=== PATIENT | male | born 1945 | race Caucasian/White ===

== ENCOUNTER → 2022-05-08 10:47 | Outpatient (BNVA) | payer MEDICARE, SELFPAY | PROVIDERS: PCP Internal Medicine; Visit Provider Nurse Practitioner Family | DX: G20 Parkinson's disease (principal) | CPT/HCPCS: 99202 ==

== ENCOUNTER → 2022-11-06 10:39 | Outpatient (BNVA) | payer MEDICARE, SELFPAY | PROVIDERS: PCP Internal Medicine; Visit Provider Nurse Practitioner Family | DX: G20 Parkinson's disease (principal) | CPT/HCPCS: 99212 ==

== ENCOUNTER 2023-06-19 13:04 | Outpatient (AMB) | payer MEDICARE, SELFPAY ==
--- NOTE | 2023-06-19 13:07 | MHC.OFFVIS ---
Intake Vital Signs 06/19/23 13:09 Height 5 ft 4 in Weight 125 lb 2 oz BMI 21.5 BP 120/64 Blood Pressure Location Lt brachial Position Standing Intake Visit Reasons: 6m follow up tremors/Confirmed Intake Note: Pt presents today for fup tremors , some improvements Allergies Penicillins Allergy (Verified 06/19/23 13:13) Rash bactrim Allergy (Uncoded 11/06/22 10:46) Rash HPI HPI Comments History of Present Illness Details 77 male patient with autonomic dysfunction and orthostatic hypotention presents with his for follow up of Parkinson's. Pt reports that head and hands tremor is about the same. Tremor is not consistent, happens usually when he rest. He feels stiffness of his fingers and decreased fine motor functions. However, he can do all ADLs independently. 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 He goes to gym twice a week. He uses fiber with his coffee to manage constipation. Denies difficulty chewing or swallowing. Denies gait changes or falls. Pt has hx of autonomic dysfunction and is on midodrine 2.5 mg BID. He can have occasional light headedness and tries to drink 4-6 glasses of water daily. Pt states that patient's memory is stable but forgetful. He can manage finances. [facility] Surgical History History of prostate surgery Social History (Updated 06/19/23 @ 13:14 by Luciana Gallego) Alcohol intake: never Patient Tobacco Use Status: Never used Tobacco Review of Systems Const All systems reviewed & are unremarkable except as noted in HPI and below Physical Exam Vital Signs: Last Vital Signs BP 120/64 06/19/23 13:09 BMI result Body Mass Index 21.5 Const Orientation/consciousness: patient oriented x3 Neuro Other: Mild head tremor and tongue tremor. Intermittent minimal resting hands tremor. Decreased facial expression and eye blinking. Hypophonia. Mild cogwheel rigidity on BUE. Decreased FFM. Decrease arm swing R>L. Mildly stooped, good steps. General: patient oriented x3 Cranial nerves: Yes Normal facial strength present, Yes Midline tongue present, Yes Ability to bilaterally rotate head present and Yes Ability to bilaterally elevate shoulders present Cognition (Neuro): normal cognition Motor exam (neuro): 5/5 motor strength present throughout and Pronator motor function not present Deep tendon reflexes (DTR's): Rt Biceps (C5, C6): 2+, Left biceps reflex intensity grade: 2+, Right brachioradialis reflex intensity grade: 2+, Left brachioradialis reflex intensity grade: 2+, Right patellar reflex intensity grade: 2+ and Left patellar reflex intensity grade: 2+ Coordination: [id number] test normal Assessment & Plan Assessment & Plan (1) Parkinson disease: Code(s): G20 - Parkinson's disease Plan Will monitor the progression and will consider sinemet at next visit due to autonomic dysfunction and orthostatic hypotention. Encouraged patient to continue to do daily exercise. Advised patient to do voice and speech exercise including reading books loudly and singing. Encourage patient well balanced diet and enough PO fluid to prevent orthostatic hypotension and constipation. Coding Level of Care Code Est Pt Level 3 (69306) Diagnoses Parkinson disease G20
[2023-06-19 13:09] VITALS: BP 120/64; BMI 21.5
== END 2023-06-19 13:33 | disposition home or self-care (01) ==
PROVIDERS: Visit Provider Nurse Practitioner Family
DX: G20.A1 Parkinson's disease without dyskinesia, without mention of fluctuations (principal); I95.1 Orthostatic hypotension
CPT/HCPCS: 99213

== ENCOUNTER → 2023-06-19 13:04 | Outpatient (BNVA) | payer MEDICARE, SELFPAY | PROVIDERS: Visit Provider Nurse Practitioner Family | DX: G20.A1 Parkinson's disease without dyskinesia, without mention of fluctuations (principal) | CPT/HCPCS: 99212 ==

== ENCOUNTER 2024-04-21 09:16 | Outpatient (AMB) | payer MEDICARE, SELFPAY ==
--- NOTE | 2024-04-21 09:20 | A.OFFVIS_ITS ---
Vital Signs 04/21/24 09:21 Height 5 ft 4 in Weight 124 lb 2 oz BMI 21.3 BP 170/90 H Blood Pressure Location Rt brachial Position Sitting Respiration 16 Pulse 78 Pulse Source Pulse Oximeter Pulse Oximetry (%) 98 Oxygen Delivery Method Room Air Intake Visit Reasons: 6 mnts f/u for Tremors Intake Note: Pt presents to the office for a 10 month follow up for Parkinson's. 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: No Allergies Penicillins Allergy (Verified 04/21/24 09:21) Rash bactrim Allergy (Uncoded 04/21/24 09:21) Rash Medication List - Last Reconciled 04/21/24 by Veronica Foy MD amlodipine 2.5 mg PO DAILY aspirin 81 mg PO DAILY atorvastatin 20 mg PO BEDTIME levothyroxine 50 mcg PO DAILY loratadine (Allergy Relief (loratadine)) 10 mg PO DAILY PRN midodrine 2.5 mg PO BID [id number]-pr1-rym-nxt-djur-lut-katlin 250 mg (90 mg-160 mg) (Ocuvite Adult 50 Plus) 1 cap PO DAILY nitroglycerin 0.4 mg sublingual Q5M PRN polyethylene glycol 3350 (Miralax) 17 grams PO DAILY HPI Comments Details: 78 male patient with autonomic dysfunction and orthostatic hypotension presents with his for follow up of Parkinson's after almost a year.He denies nay change since his last visit.No falls. According to his he is slower, has trouble dressing and he has tremors in his left hand now.He goes to exercise class 2times a week and walks the rest of the week. 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 Denies difficulty chewing or swallowing. Denies gait changes or falls. Pt has hx of autonomic dysfunction and is on midodrine 2.5 mg BID. He can have occasional light headedness and tries to drink 4-6 glasses of water daily. Pt states that patient's memory is stable but forgetful. He can manage finances. [facility] Medical History (Updated 04/21/24 @ 09:57 by Veronica Foy MD) Parkinson's disease with neurogenic orthostatic hypotension Surgical History History of prostate surgery Social History Alcohol intake: never Patient Tobacco Use Status: Never used Tobacco Physical Exam Vital Signs: Last Vital Signs Pulse 78 04/21/24 09:21 Resp 16 04/21/24 09:21 BP 170/90 H 04/21/24 09:21 Pulse Ox 98 04/21/24 09:21 Oxygen Delivery Method Room Air 04/21/24 09:21 BMI result Body Mass Index 21.3 Const Orientation/consciousness: patient oriented x3 Neuro Other: Intermittent minimal resting hands tremor. Decreased facial expression and eye blinking. Hypophonia. Mild cogwheel rigidity on BUE. Decreased FFM. Decrease arm swing R>L. Mildly stooped, good steps. General: patient oriented x3 Cranial nerves: Yes Normal facial strength present, Yes Midline tongue present, Yes Ability to bilaterally rotate head present and Yes Ability to bilaterally elevate shoulders present Cognition (Neuro): normal cognition Motor exam (neuro): 5/5 motor strength present throughout and Pronator motor function not present Deep tendon reflexes (DTR's): Rt Biceps (C5, C6): 2+, Left biceps reflex intensity grade: 2+, Right brachioradialis reflex intensity grade: 2+, Left brachioradialis reflex intensity grade: 2+, Right patellar reflex intensity grade: 2+ and Left patellar reflex intensity grade: 2+ Coordination: [id number] test normal Assessment & Plan Assessment & Plan (1) Parkinson's disease with neurogenic orthostatic hypotension: Code(s): G90.3 - Multi-system degeneration of the autonomic nervous system Category: Medical Plan Encouraged patient to continue to do daily exercise. Advised patient to do voice and speech exercise including reading books loudly and singing. Encourage patient well balanced diet and enough PO fluid to prevent orthostatic hypotension and constipation. Suggested miralax and smooth move tea for constipation . will hold off on dopamine meds for now PT for gait training Orders: Orders PT Evaluation and Treatment Today G90.3 - Multi-system degeneration of the autonomic nervous system Medications: New polyethylene glycol 3350 (Miralax) 17 grams PO DAILY 510 grams 6RF Coding Level of Care Code Est Pt Level 4 (44933) Complex EM visit Add On G2211 Diagnoses Parkinson's disease with neurogenic orthostatic hypotension G90.3
[2024-04-21 09:21] VITALS: BP 170/90; PULSE 78; RESP 16; O2SAT 98; BMI 21.3
== END 2024-04-21 10:04 | disposition home or self-care (01) ==
PROVIDERS: PCP Internal Medicine; Visit Provider Psychiatry & Neurology Neurology
DX: G90.3 Multi-system degeneration of the autonomic nervous system (principal)
CPT/HCPCS: 99214; G2211

== ENCOUNTER → 2024-04-21 09:16 | Outpatient (BNVA) | payer MEDICARE, SELFPAY | PROVIDERS: PCP Internal Medicine; Visit Provider Psychiatry & Neurology Neurology | DX: G90.3 Multi-system degeneration of the autonomic nervous system (principal) | CPT/HCPCS: 99212 ==

== ENCOUNTER 2024-12-01 09:41 | Outpatient (AMB) | payer MEDICARE, SELFPAY ==
--- NOTE | 2024-12-01 09:49 | MHC.OFFVIS ---
Vital Signs 12/01/24 09:52 Height 5 ft 4 in Weight 119 lb BMI 20.4 BP 144/80 H Blood Pressure Location Rt brachial Position Sitting Intake Visit Reasons: 6 mnts f/u for Tremors-LVM Intake Note: Patient presents for follow up PT referral. ATI note scanned 10/08/24. Allergies Penicillins Allergy (Verified 12/01/24 09:52) Rash bactrim Allergy (Uncoded 12/01/24 09:52) Rash Medication List - Last Reconciled 12/01/24 by Veronica Foy MD amlodipine 2.5 mg PO DAILY aspirin 81 mg PO DAILY atorvastatin 20 mg PO BEDTIME levothyroxine 50 mcg PO DAILY loratadine (Allergy Relief (loratadine)) 10 mg PO DAILY PRN midodrine 2.5 mg PO BID gx-nk-or8-qja-ees-ctcf-lut-katlin 250 mg (90 mg-160 mg) (Ocuvite Adult 50 Plus) 1 cap PO DAILY nitroglycerin 0.4 mg sublingual Q5M PRN polyethylene glycol 3350 (Miralax) 17 grams PO DAILY HPI Comments Details: 78 male patient with autonomic dysfunction and orthostatic hypotension presents with his for follow up of Parkinson's after 6 mths . No falls. denies dizziness. According to his he is slower, drooling more,has trouble dressing and he has tremors in his left hand now.He goes to exercise class 2times a week and walks the rest of the week. 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 Denies difficulty chewing or swallowing. Denies gait changes or falls. Pt has hx of autonomic dysfunction and is on midodrine 2.5 mg BID. He can have occasional light headedness and tries to drink 4-6 glasses of water daily. Pt states that patient's memory is stable but forgetful. He can manage finances. [facility] Medical History Parkinson's disease with neurogenic orthostatic hypotension Surgical History History of prostate surgery Social History Alcohol intake: never Patient Tobacco Use Status: Never used Tobacco Physical Exam Vital Signs: Last Vital Signs BP 144/80 H 12/01/24 09:52 BMI result Body Mass Index 20.4 Const Orientation/consciousness: patient oriented x3 Neuro Other: Intermittent minimal resting hands tremor. Decreased facial expression and eye blinking. Hypophonia. Mild cogwheel rigidity on BUE. Decreased FFM. Decrease arm swing R>L. Mildly stooped, good steps. General: patient oriented x3 Cranial nerves: Yes Normal facial strength present, Yes Midline tongue present, Yes Ability to bilaterally rotate head present and Yes Ability to bilaterally elevate shoulders present Cognition (Neuro): normal cognition Motor exam (neuro): 5/5 motor strength present throughout and Pronator motor function not present Coordination: [id number] test normal Assessment & Plan Assessment & Plan (1) Parkinson's disease with neurogenic orthostatic hypotension: Code(s): G90.3 - Multi-system degeneration of the autonomic nervous system Category: Medical Plan I will trial him on carbidopa/levodopa 25/100 1/2 tab tid - discussed side effects Encouraged patient to continue to do daily exercise. Advised patient to do voice and speech exercise including reading books loudly and singing. Encourage patient well balanced diet and enough PO fluid to prevent orthostatic hypotension and constipation. Suggested miralax and smooth move tea for constipation . Medications: New carbidopa-levodopa 25-100 mg 0.5 tabs PO TID 90 tabs 1RF Coding Level of Care Code Est Pt Level 4 (67786) Complex EM visit Add On G2211 Diagnoses Parkinson's disease with neurogenic orthostatic hypotension G90.3
[2024-12-01 09:52] VITALS: BP 144/80; BMI 20.4
--- OUTSIDE RECORDS SUMMARY | 2024-12-01 10:53 | XMS_ITS | Clinical Summary ---
Author Organization [facility] [address] [facility] Address [address] [place] [address] Phone Care Team Providers Care Improvement Leader Name Role Phone Nader Davenport MD Primary Care Provider Allergies Active Allergy Reactions Criticality Noted Date Comments Diphenhydramine Hcl 07/15/2005 Penicillins 07/15/2005 Sulfamethoxazole-Trimethoprim 2004 Medications aspirin (ASPIR-81 ORAL) Take by mouth. Active mv-mn/om3/dha/e pa/fish/lut/katlin (OCUVITE ADULT 50 PLUS ORAL) Take by mouth. A ctive amLODIPine (NORVASC) 2.5 mg tablet TAKE 1 TABLET DAILY 4 Active atorvastatin (LIPITOR) 20 mg tablet TAKE 1 TABLET AT BEDTIME 4 Active nitroglycerin (NITROSTAT) 0.4 mg SL tablet Sl , can repeat q 5 min for total of 3tab within 10-15 min 1 Active midodrine (PROAMATINE) 2.5 mg tablet TAKE 1 TABLET EVERY MORNINGAND 1 TABLET AT 2PM (TWICE DAILY) 180 tablet 5 Active levothyroxine (SYNTHROID, LEVOTHROID) 50 mcg tablet Take 1 tablet (50 mcg total) by mouth 1 (one) time each day. 90 tablet 3 5 Active mirtazapine (REMERON) 7.5 mg tablet TAKE 1 TABLET AT BEDTIME 90 tablet 5 Active Active Problems Problem Noted Date Diagnosed Date Colon cancer screening declined 08/09/2024 Parkinson's disease ([facility] V24, [facility] V28) 0 01/30/2024 Nephrolithiasis 10/11/2021 Actinic keratosis 08/20/2011 Overview (06/29/2024): Actinic keratosis 08/22 face & scalp Diverticula of colon 03/13/2011 Overview (06/29/2024): Asymptomatic, found on colonoscopy in 12/19 Squamous cell carcinoma of skin 05/16/2008 Overview (06/29/2024): SCC 10/20 neck (in situ) 04/21 scalp (in situ) 05/17 scalp, frontal & posterior (in-situ) Coronary disease 10/17/2007 Overview (06/29/2024): Rt and circ Plast 1994 Dr allen repaeat Cath 1999 stable Lyme disease 09/18/2007 Overview (06/29/2024): treated Constipation 05/23/2006 Overview (06/29/2024): IMO update Neoplasm of uncertain behavior of skin Overview (06/29/2024): Dysplastic nevus right ear (moderate atypia) Coronary atherosclerosis of gamb[place] coronary vess el 12/01/2005 Malignant neoplasm of skin 12/01/2005 Overview (06/29/2024): BCC 11/17 nose (nodular type) 08/13 left catholic 92' right shoulder IMO update Hypothyroidism 12/01/2005 Essential hypertension, benign 07/15/2005 Mixed hyperlipidemia 07/15/2005 Immunizations Name Administration Dates Next Due Influenza Quadravalent, MDCK , 0.5ml, preservative free (Flucelvax) 6mo and older 06/11/2018 Influenza trivalent, 0.5mL ( Fluad) 65yo and older 06/12/2024,05/31/2023,05/14/2021,05/18,05/05/2019,06/01/2017 Influenza trivalent, 0.5mL, preservative free (Fluarix; FluLaval; Fluzone) ages 6mo and older (Afluria) 3 years and older 07/14/2016,07/20/2015,07/03/2014,06/08,04/29/2012,05/15/2011,06/08/2010 ,05/16/2009,05/16/2008,06/14/2005 Influenza, Unspecified 05/27/2020 Moderna SARS-CoV-2 COVID-19, mRNA, LNP-S, preservative free 06/20/2021,11/01/2020,10/03/2020 Pneumococcal conjugate 13 va lent (Prevnar 13, PCV13) 2mo and older 03/08/2015 Pneumococcal polysaccharide 23 valent (Pneumovax 23) 2yo and older 10/31/2010,06/14/2005 Td Tetanus diptheria (Tdvax) 7yo and older 04/07/2013,05/30/2003 Zoster Live 11/07/2009 Zoster recombinant (Shingrix ) 19yo and older 07/30/2020,05/27/2020 Surgical History Surgery Date Site/Laterality Comments MOLE REMOVAL PROCEDURE: HISTORICAL MOLE (REMOVAL OF) OTHER SURGICAL HISTORY 04/23/2001 PROCEDURE: COLON CA SCRN NOT HI RSK IND; COMMENT: Negative screening exam, Dr. Zapata OTHER SURGICAL HISTORY PROCEDURE: CT LAPS SURG [id number] RPBIC RAD W/NRV SPARING ROBOT; COMMENT: For prostate cancerDr. Thompson in 2010 Medical History Medical History Date Comments Unspecified hypothyroidism DX:Un specified hypothyroidism Essential hypertension, benign D X:Essential hypertension, benign Mixed hyperlipidemia DX:Mixed hy perlipidemia Coronary atherosclerosis of unspecified type of vessel, gambell or graft 12/01/2005 DX:Coronary atherosclerosis of unspecified type of vessel, gambell or graft Unspecified hypothyroidism 12/01/2005 DX:Un specified hypothyroidism Hypertrophy of prostate with out urinary obstruction and other lower urinary tract symptoms (LUTS) 12/01/2005 DX:Hypertrophy of prosta te without urinary obstruction and other lower urinary tract symptoms (LUTS) Other malignant neoplasm of skin, site unspecified 12/01/2005 DX:Other malignant neoplasm of skin, site unspecified Nevus, non-neoplastic DX:Nevus, non-neoplastic Coronary disease 10/17/2007 DX:Coronary dis ease Diverticula of colon 03/13/2011 DX:Divertic hilario of colon Prostate cancer (CMS/HCC V24 , CMS/HCC V28) 07/15/2011 DX:Prostate cancer (HCC) Family History Medical History Relation Name Comments Other: stroke Father at 67 Other: Other Mother Other: myocardial infarction Mother at 83 Relation Name Status Comments Brother 1 Alive Prostate cancer Brother 2 Alive Father (Age 65) stroke Mother (Age 84) stroke Social History Tobacco Use Types Packs/Day Years Used Date Smoking Tobacco: Never Smokeless Tobacco: Never Alcohol Use Standard Drinks/Week Comments Yes 0 (1 standard drink = 0.6 oz pur e alcohol) Sex and Gender Information Value Date Recorded Sex Assigned at Not on file Legal Sex Male 11:44 PM EST Gender Identity Male 08/02/2024 1:05 PM EST Sexual Orientation Straight 08/02/2024 1: 05 PM EST Obstetrics History Last Filed Vital Signs Vital Sign Reading Time Taken Comments Blood Pressure 132/79 08/09/2024 9:48 AM EST Pulse 66 08/09/2024 9:45 AM EST Temperature 36.3 ??C (97.3 ??F) 08/09/2024 9:45 AM ES T Respiratory Rate 16 08/09/2024 9:45 AM EST Oxygen Saturation 99% 08/09/2024 9:45 AM EST Inhaled Oxygen Concentration - - Weight 55 kg (121 lb 3.2 oz) 08/09/2024 9:45 AM EST Height 162.6 cm (5' 4 ) 08/09/2024 9:45 AM EST Body Mass Index 20.8 08/09/2024 9:45 AM EST Plan of Treatment Upcoming Encounters Date Type Department Care Team (Late st Contact Info) Description 02/09/2025 9:45 AM EDT Office Visit Adult Medicine [facility] [address] [place] [address] Nader Davenport MD [address] [place] [address] Health Maintenance Due Date Last Done Comments RSV Immunization Adult Patients (1 - 1-dose 75+ series) 2020 Social Influencers of Health Screening 07/14/2022 DTaP,Tdap,and Td Vaccines (3 - Td or Tdap) 04/07/2023 04/07/2013, 05/30/2003 COVID-19 Vaccine (7 - Moderna risk season) 2024 06/12/2024, 05/31/2023, 05/06/2022, Additional history exists Depression Screening 01/29/2025 01/30/2024 Medicare Annual Wellness Visit 01/29/2025 01/30/2024 Falls Risk Assessment 08/09/2025 08/09/2024 Hypertension/CHF/CAD Annual BMP Blood Test 08/09/2025 08/09/2024, 08/18/2023 Cholesterol Screening (Lipid Panel) 08/09/2029 08/09/2024, 08/18/2023 Hepatitis C Screening Completed 07/21/2014 Pneumococcal Vaccine: 50+ Years Completed 03/08/2015, 10/31/2010, 06/14/2005 Zoster Vaccines Completed 07/30/2020, 05/11, 11/07/2009 Influenza Vaccine Completed 06/12/2024, , 05/20/2022, Additional history exists HIB Vaccines Aged Out No longer eligi ble based on patient's age to complete this topic HPV Vaccines Aged Out No longer eligi ble based on patient's age to complete this topic Hepatitis A Vaccines Aged Out No long er eligible based on patient's age to complete this topic Hepatitis B Vaccines Aged Out No long er eligible based on patient's age to complete this topic IPV Vaccines Aged Out No longer eligi ble based on patient's age to complete this topic MMR Vaccines Aged Out No longer eligi ble based on patient's age to complete this topic Meningococcal ACWY Vaccine Aged Out N o longer eligible based on patient's age to complete this topic Meningococcal B Vaccine Aged Out No l onger eligible based on patient's age to complete this topic RSV Immunization Patients Under 20 months Aged Out No longer eligible based on patient's age to complete this topic Varicella Vaccines Aged Out No longer eligible based on patient's age to complete this topic Procedures Procedure Name Priority Date/Time Associated Diagnosis Comments COMPREHENSIVE METABOLIC PANEL Routine 08/09/2024 10:35 AM EST Parkinson's disease with dyskinesia and fluctuating manifestations (CMS/HCC V24, CMS/HCC V28) LIPID PANEL WITH REFLEX TO DIRECT LDL Routine 08/09/2024 10:35 AM EST Mixed hyperlipidemia DEPRESSION SCREENING Routine 01/30/2024 HEPATITIS C SCREENING Routine 07/21/2014 from Last 3 Months or Most Recently Relevant to Health Maintenance Results * Lipid panel with reflex to direct LDL (08/09/2024 10:35 AM EST) Cholesterol 141 0 - 200 mg/dL LAB CHEMISTRY METHOD 08/09/2024 5:[address] [facility] Triglycerides 77 0 - 150 mg/dL LAB CHEMISTRY METHOD 08/09/2024 5:[address] [facility] HDL 74 >=40 mg/dL LAB CHEMISTRY METHOD 08/09/2024 5:[address] [facility] LDL Calculated 52 0 - 100 mg/dL LAB CHEMISTRY METHOD 08/09/2024 5:[address] [facility] VLDL Cholesterol Tristen 15.4 mg/dL LAB CHEMISTRY METHOD 08/09/2024 5:[address] [facility] Non HDL Chol. (LDL+VLDL) 67 <145 mg/dL LAB CHEMISTRY METHOD 08/09/2024 5:[address] [facility] Chol/HDL Ratio 1.9 0.0 - 4.4 LAB CHEMISTRY METHOD 08/09/2024 5:[address] [facility] Blood Venous blood specimen / Unknown Venipuncture / Unknown 08/09/2024 10:35 AM EST 08/09/2024 10:35 AM EST us Nader Davenport MD LAB BLOOD ORDERABLES F inal Result [facility] [address] [place] [address], * Comprehensive metabolic panel (08/09/2024 10:35 AM EST) Sodium 138 133 - 145 mmol/L LAB CHEMISTRY METHOD 08/09/2024 5:[address] [facility] Potassium 4.2 3.5 - 5.5 mmol/L LAB CHEMISTRY METHOD 08/09/2024 5:[address] [facility] Chloride 104 96 - 110 mmol/L LAB CHEMISTRY METHOD 08/09/2024 5:[address] [facility] CO2 31 21 - 32 mmol/L LAB CHEMISTRY METHOD 08/09/2024 5:[address] [facility] Anion Gap 3 3 - 11 LAB CHEMISTRY METHOD 08/09/2024 5:[address] [facility] Glucose 80 70 - 100 mg/dL LAB CHEMISTRY METHOD 08/09/2024 5:[address] [facility] BUN 22 5 - 25 mg/dL LAB CHEMISTRY METHOD 08/09/2024 5:[address] [facility] Creatinine 0.77 0.70 - 1.30 mg/dL LAB CHEMISTRY METHOD 08/09/2024 5:[address] [facility] eGFR 92 >=60 mL/min/1. 73m2 LAB CHEMISTRY METHOD 08/09/2024 5:[address] [facility] Comment:Calculation based on the??Chronic Kidney Disease Epidemiology Collaboration (CKD-EPI) equation refit??without adjustment for race. BUN/Creatinine Ratio 28.6 LAB CHEMISTRY METHOD 08/09/2024 5:[address] [facility] Calcium 9.0 8.5 - 10.5 mg/dL LAB CHEMISTRY METHOD 08/09/2024 5:[address] [facility] AST (SGOT) 16 10 - 42 unit/L LAB CHEMISTRY METHOD 08/09/2024 5:[address] [facility] ALT (SGPT) 35 10 - 60 unit/L LAB CHEMISTRY METHOD 08/09/2024 5:[address] [facility] Alkaline Phosphatase 56 42 - 121 unit/L LAB CHEMISTRY METHOD 08/09/2024 5:[address] [facility] Total Protein 6.7 6.0 - 8.0 g/dL LAB CHEMISTRY METHOD 08/09/2024 5:[address] [facility] Albumin 3.9 3.2 - 5.0 g/dL LAB CHEMISTRY METHOD 08/09/2024 5:[address] [facility] Total Bilirubin 0.5 0.0 - 1.4 mg/dL LAB CHEMISTRY METHOD 08/09/2024 5:[address] [facility] Blood Venous blood specimen / Unknown Venipuncture / Unknown 08/09/2024 10:35 AM EST 08/09/2024 10:35 AM EST Nader Davenport MD LAB BLOOD ORDERABLES F inal Result [facility] [address] [place] [address], * Depression Screening (01/30/2024) Depression Screening Abstracted Historical Provider HEALTH MAINTENANCE Final Result * Hepatitis C Screening (07/21/2014) Hepatitis C Screening Abstracted Historical Provider HEALTH MAINTENANCE Final Result from Last 3 Months or Most Recently Relevant to Health Maintenance Insurance MEDICARE [facility] Advance Directives Documents on File Type Date Recorded 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
== END 2024-12-01 10:25 | disposition home or self-care (01) ==
LOC: HO.HSMS 09:41
PROVIDERS: PCP Internal Medicine; Visit Provider Psychiatry & Neurology Neurology
DX: G90.3 Multi-system degeneration of the autonomic nervous system (principal)
CPT/HCPCS: 99214; G2211

== ENCOUNTER → 2024-12-01 09:41 | Outpatient (BNVA) | payer MEDICARE, SELFPAY | PROVIDERS: PCP Internal Medicine; Visit Provider Psychiatry & Neurology Neurology | DX: G90.3 Multi-system degeneration of the autonomic nervous system (principal); G20.A1 Parkinson's disease without dyskinesia, without mention of fluctuations | CPT/HCPCS: 99212 ==

== ENCOUNTER 2025-03-01 09:46 | Outpatient (AMB) | payer MEDICARE, SELFPAY ==
[2025-03-01 09:54] VITALS: BP 100/80; PULSE 72; O2SAT 97; BMI 20.6
--- NOTE | 2025-03-01 09:54 | A.OFFVIS_ITS ---
Vital Signs 03/01/25 09:54 Height 5 ft 4 in Weight 120 lb BMI 20.6 BP 100/80 Blood Pressure Location Rt brachial Position Sitting Pulse 72 Pulse Source Pulse Oximeter Pulse Oximetry (%) 97 Oxygen Delivery Method Room Air Intake Visit Reasons: 3 month med follow up Practice Management Consultant Required: No Accompanied by: Self / Same As Patient Allergies Penicillins Allergy (Verified 03/01/25 09:58) Rash bactrim Allergy (Uncoded 12/01/24 09:52) Rash Medication List - Last Reconciled 03/01/25 by Veronica Foy MD amlodipine 2.5 mg PO DAILY aspirin 81 mg PO DAILY atorvastatin 20 mg PO BEDTIME levothyroxine 50 mcg PO DAILY loratadine (Allergy Relief (loratadine)) 10 mg PO DAILY PRN qt-pf-nu1-hht-guw-sspi-lut-katlin 250 mg (90 mg-160 mg) (Ocuvite Adult 50 Plus) 1 cap PO DAILY nitroglycerin 0.4 mg sublingual Q5M PRN rasagiline 1 mg PO DAILY HPI Comments Details: 79 male patient with autonomic dysfunction and orthostatic hypotension presents with his for follow up of Parkinson's .He could not tolerate carbidopa/levodopa - had hallucinations and felt very cold.But it helped his movement. His midodrine was stopped as his BP was high . He is doing better now with rasagiline . History from 11/2024- According to his he is slower, drooling more,has trouble dressing and he has tremors in his left hand now.He goes to exercise class 2times a week and walks the rest of the week. Pt reports that he singing for vocal training.He sings every friday when he goes to christian He uses fiber with his coffee to manage constipation. Denies difficulty chewing or swallowing. Denies gait changes or falls. Pt has hx of autonomic dysfunction and is on midodrine 2.5 mg BID. He can have occasional light headedness and tries to drink 4-6 glasses of water daily. Pt states that patient's memory is stable but forgetful. He can manage finances. [facility] Medical History Parkinson's disease with neurogenic orthostatic hypotension Surgical History History of prostate surgery Social History Alcohol intake: never Patient Tobacco Use Status: Never used Tobacco Physical Exam Vital Signs: Last Vital Signs Pulse 72 03/01/25 09:54 BP 100/80 03/01/25 09:54 Pulse Ox 97 03/01/25 09:54 Oxygen Delivery Method Room Air 03/01/25 09:54 BMI result Body Mass Index 20.6 Const Orientation/consciousness: patient oriented x3 Neuro Other: no tremors. Decreased facial expression and eye blinking. Hypophonia. better than last visit Mild cogwheel rigidity on left UE Decreased FFM. - mild Decrease arm swing R>L. Mildly stooped, good steps. General: patient oriented x3 Cranial nerves: Yes Normal facial strength present, Yes Midline tongue present, Yes Ability to bilaterally rotate head present and Yes Ability to bilaterally elevate shoulders present Cognition (Neuro): normal cognition Motor exam (neuro): 5/5 motor strength present throughout and Pronator motor function not present Coordination: opmizh-bi-rxsp test normal Assessment & Plan Assessment & Plan (1) Parkinson's disease with neurogenic orthostatic hypotension: Code(s): G90.3 - Multi-system degeneration of the autonomic nervous system Category: Medical Plan Continue rasagiline 1mg qd Encouraged patient to continue to do daily exercise. Advised patient to do voice and speech exercise including reading books loudly and singing. Encourage patient well balanced diet and enough PO fluid to prevent orthostatic hypotension and constipation. Suggested miralax and smooth move tea for constipation . Medications: New rasagiline 1 mg PO DAILY 90 tabs 6RF rasagiline 1 mg PO DAILY 90 tabs 6RF Coding Level of Care Code Est Pt Level 4 (09729) Complex EM visit Add On G2211 Diagnoses Parkinson's disease with neurogenic orthostatic hypotension G90.3
--- OUTSIDE RECORDS SUMMARY | 2025-03-01 10:31 | XMS_ITS | Clinical Summary ---
Author Organization [facility] [address] [facility] Address [address] [place] [address] Phone Care Team Providers Care Digester Hand Name Role Phone Nader Davenport MD Primary Care Provider Allergies Active Allergy Reactions Criticality Noted Date Comments Diphenhydramine Hcl 07/15/2005 Penicillins 07/15/2005 Sulfamethoxazole-Trimethoprim 2004 Medications aspirin (ASPIR-81 ORAL) Take by mouth. Active mv-mn/om3/dha/ epa/fish/lut/z ea (OCUVITE ADULT 50 PLUS ORAL) Take by mouth. Active levothyroxine (SYNTHROID, LEVOTHROID) 50 mcg tablet Take 1 tablet (50 mcg total) by mouth 1 (one) time each day. 90 tablet 3 10/05/19 25 Active amLODIPine (NORVASC) 2.5 mg tablet TAKE 1 TABLET DAILY 90 tablet 1 12/11/19 25 Active atorvastatin (LIPITOR) 20 mg tablet TAKE 1 TABLET AT BEDTIME 90 tablet 1 01/05/20 25 Active rasagiline (AZILECT) 1 mg tablet Take 1 tablet (1 mg total) by mouth 1 (one) time each day. 01/27/20 25 Active nitroglycerin (NITROSTAT) 0.[address] 1 tablet (0.4 mg total) under the tongue every 5 (five) minutes if needed for chest pain. 90 tablet 02/10/20 25 Active nitroglycerin (NITROSTAT) 0.4 mg SL tablet Sl , can repeat q 5 min for total of 3tab within 10-15 min 04/19/20 025 Discontinued(Re order) mirtazapine (REMERON) 7.5 mg tablet TAKE 1 TABLET AT BEDTIME 90 tablet 10/26/19 025 Discontinued(Pa tient Discharge) midodrine (PROAMATINE) 2.5 mg tablet TAKE 1 TABLET EVERY MORNINGAND 1 TABLET AT 2PM (TWICE DAILY) 180 tablet 12/28/19 025 Discontinued Active Problems Problem Noted Date Diagnosed Date Atypical chest pain 02/09/2025 Dizziness 02/09/2025 Hypertensive disorder 02/09/2025 Orthostatic hypotension 02/09/2025 Hypotension 11/29/2024 Colon cancer screening declined 08/09/2024 Parkinson's disease ([facility] V24, [facility] V28) 0 01/30/2024 Atopic dermatitis 04/10/2022 Furuncle of abdominal wall 04/10/2022 Tinea pedis 04/10/2022 Furuncle 10/15/2021 Nephrolithiasis 10/11/2021 Disorder of pigmentation 02/26/2021 Melanocytic nevus of trunk 02/26/2021 Onychomycosis due to dermatophyte 02/26/2021 Epidermal cyst 05/03/2020 Erythema intertrigo 05/03/2020 Dermatitis, unspecified 03/01/2020 Local infection of the skin and subcutaneous tissue, unspecified 03/01/2020 Tinea unguium 03/01/2020 Finding of above normal blood pressure 9 Malignant neoplasm of prostate ([facility] V24, [facility] V28) 06/30/2019 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 07/23/2017 General symptom 02/18/2017 Basal cell carcinoma (BCC) of skin of ear 2014 Actinic keratosis 08/20/2011 Overview (06/29/2024): Actinic keratosis 08/22 face & scalp Diverticula of colon 03/13/2011 Overview (06/29/2024): Asymptomatic, found on colonoscopy in 5/11 Squamous cell carcinoma of skin 05/16/2008 Overview [...] right ear (moderate atypia) Coronary atherosclerosis of lone pine coronary vess el 12/01/2005 Malignant neoplasm of skin 12/01/2005 Overview (06/29/2024): BCC 11/17 nose (nodular type) 08/13 left jewish 92' right shoulder IMO update Hypothyroidism 12/01/2005 Essential hypertension, benign 07/15/2005 Mixed hyperlipidemia 07/15/2005 Encounters Date Type Department Care Team Description 02/09/2025 9:45 AM EDT Office Visit Adult Medicine [address] [phone] Nader Davenport MD Essential hypertension, benign (Primary Dx); Other specified hypothyroidism; Mixed hyperlipidemia; Coronary artery disease involving lone pine coronary artery of lone pine heart without angina pectoris; Parkinson's disease with dyskinesia and fluctuating manifestations (CMS/HCC V24, CMS/HCC V28) 02/09/2025 Telephone Adult Medicine [address] [phone] Nader Davenport MD from Last 3 Months Immunizations Name Administration Dates Next Due Influenza [...] exam, Dr. Zapata OTHER SURGICAL HISTORY PROCEDURE: [place] LAPS SURG [id number] RPBIC RAD W/NRV SPARING ROBOT; COMMENT: For prostate cancerDr. Thompson in 2010 Medical History Medical History Date Comments Unspecified hypothyroidism DX:Un specified hypothyroidism Essential hypertension, benign D X:Essential hypertension, benign Mixed hyperlipidemia DX:Mixed hy perlipidemia Coronary atherosclerosis of unspecified type of vessel, lone pine or graft 12/01/2005 DX:Coronary atherosclerosis of unspecified type of vessel, lone pine or graft Unspecified hypothyroidism 12/01/2005 DX:Un specified [...] 03/13/2011 DX:Divertic hilario of colon Prostate cancer ([facility] V24 , [facility]/HCC V28) 07/15/2011 DX:Prostate cancer (HCC) Family History Medical History Relation Name Comments Other: stroke Father at 67 Other: Other Mother Other: myocardial infarction Mother at 83 Relation Name Status Comments Brother 1 Alive Prostate cancer Brother 2 Alive Father (Age 65) stroke Mother (Age 84) stroke Social History Tobacco Use Types Packs/Day Years Used Date Smoking Tobacco: Never Smokeless Tobacco: Never Tobacco Cessation:Counseling Given: Not Answered Alcohol Use Standard Drinks/Week Comments Yes 0 (1 standard drink = 0.6 oz pur e alcohol) Housing Instability Answer Date Recorde d Are you worried that in the next 2 months you may not have stable housing? No 02/09/2025 Food Access & Nutrition Answer Date Rec orded Do you have access to a vari ety of food including fruits and vegetables? Yes 02/09/2025 Access to Healthcare Answer Date Record ed Within the last 3 months, ho w many times did you visit the emergency department for your medical care? 0 02/09/2025 Health Literacy Answer Date Recorded How often do you need to hav e someone help you when you read instructions, pamphlets, or other written material from your doctor or pharmacy? Never 02/09/2025 Caregiver: How often do you need to have someone help you when you read instructions, pamphlets, or other written material from your doctor or pharmacy? Not on file 02/09/2025 Financial Risk Answer Date Recorded How hard is it for you to pa y for the very basics like food, housing, medical care, and air conditioning / heating? Not very hard 02/09/2025 Transportation Answer Date Recorded Has the lack of transportati on kept you from meetings, work, or from getting things needed for daily living? No Has the lack of transportati on kept you from medical appointments or from getting medications? No 02/09/2025 Social Isolation Answer Date Recorded How often do you feel lonely or isolated from th ose around you? Never 02/09/2025 Food Risk Answer Date Recorded Within the past 12 months we worried whether our food would run out before we got money to buy more. Never true 02/09/2025 Within the past 12 months th e food we bought just didn't last and we didn't have money to get more. Never true 02/09/2025 Dependent Care Answer Date Recorded Do you need help finding or paying for care for your loved ones. For example, child care nurse or elderly care for an older adult? No 02/09/2025 Education Answer Date Recorded Do you think completing more education or training, like finishing a GED, going to college, or learning a trade, would be helpful for you? N/A 02/09/2025 Employment and Income Answer Date Recor ded During the last four weeks, have you been actively looking for work? No 02/09/2025 Living Situation Answer Date Recorded What is your living situation? 0 02/09/2025 Sex and Gender Information Value Date Recorded Sex Assigned at Not on file Legal Sex Male 11:44 PM EST Gender Identity Male 08/02/2024 1:05 PM EST Sexual Orientation Straight 08/02/2024 1 :05 PM EST Obstetrics History Last Filed Vital Signs Vital Sign Reading Time Taken Comments Blood Pressure 157/81 02/09/2025 9:27 AM EDT Sta nding. Pulse 67 02/09/2025 9:24 AM EDT Temperature 36.4 C (97.6 F) 02/09/2025 9:24 AM EDT Respiratory Rate 14 02/09/2025 9:24 AM EDT Oxygen Saturation 97% 02/09/2025 9:24 AM EDT Inhaled Oxygen Concentration - - Weight 54.5 kg (120 lb 3.2 oz) 02/09/2025 9:24 A M EDT Height 162.6 cm (5' 4 ) 02/09/2025 9:24 AM EDT Body Mass Index 20.63 02/09/2025 9:24 AM EDT Plan of Treatment Upcoming Encounters Date Type Department Care Team (Late st Contact Info) Description 03/03/2025 12:30 PM EDT Office Visit Adult Medicine [address] [place], [place] [phone] Kristine Duvall PA [address], [place] Health Maintenance Due Date Last Done Comments RSV Immunization Adult Patients (1 - 1-dose 75+ series) 2020 DTaP,Tdap,and Td Vaccines (3 - Td or Tdap) 04/07/2023 04/07/2013, 05/30/2003 COVID-19 Vaccine (7 - Moderna risk season) 2024 06/12/2024, 05/31/2023, 05/06/2022, Additional history exists Medicare Annual Wellness Visit 01/29/2025 01/30/2024 Influenza Vaccine (#1) 2025 , 05/31/2023, 05/20/2022, Additional history exists Falls Risk Assessment 08/09/2025 08/09/2024 Hypertension/CHF/CAD Annual BMP Blood Test 02/09/2026 02/09/2025, 08/09/2024, 08/18/2023 Social Influencers of Health Screening 02/09/2026 02/09/2025 Cholesterol Screening (Lipid Panel) 08/09/2029 08/09/2024, 08/18/2023 Hepatitis C Screening Completed 07/21/2014 Pneumococcal Vaccine: 50+ Years Completed 03/08/2015, 10/31/2010, 06/14/2005 Zoster Vaccines Completed 07/30/2020, 05/11, 11/07/2009 Depression Screening Completed 02/24/2025, 01/30/20 24 HIB Vaccines Aged Out No longer eligi [...] Associated Diagnosis Comments COMPREHENSIVE METABOLIC PANEL Routine 02/09/2025 10:23 AM EDT Coronary artery disease involving lone pine coronary artery of lone pine heart without angina pectoris THYROID STIMULATING HORMONE WITH REFLEX TO FREE T4 AND FREE T3 Routine 02/09/2025 10:23 AM EDT Other specified hypothyroidism LIPID PANEL WITH REFLEX TO DIRECT LDL Routine 08/09/2024 10:35 AM EST Mixed hyperlipidemia DEPRESSION SCREENING Routine 01/30/2024 HEPATITIS C SCREENING Routine 07/21/2014 from Last 3 Months or Most Recently Relevant to Health Maintenance Results * Thyroid stimulating hormone with reflex to free t4 and free t3 (02/09/2025 10:23 AM EDT) TSH 1.24 0.40 - 4.00 mcIU/mL LAB CHEMISTRY METHOD 02/09/2025 4:37 PM EDT [facility] Blood Venous blood specimen / Unknown Venipuncture / Unknown 02/09/2025 10:23 AM EDT 02/09/2025 10:23 AM EDT us Nader Davenport MD LAB BLOOD ORDERABLES F inal Result [facility] [address] [place] [address], [place] [phone] * (ABNORMAL) Comprehensive metabolic panel (02/09/2025 10:23 AM EDT) Sodium 142 133 - 145 mmol/L LAB CHEMISTRY METHOD 02/09/2025 4:28 PM [facility] Potassium 4.3 3.5 - 5.5 mmol/L LAB CHEMISTRY METHOD 02/09/2025 4:28 PM [facility] Chloride 106 96 - 110 mmol/L LAB CHEMISTRY METHOD 02/09/2025 4:28 PM [facility] CO2 32 21 - 32 mmol/L LAB CHEMISTRY METHOD 02/09/2025 4:28 PM [facility] Anion Gap 4 3 - 11 LAB CHEMISTRY METHOD 02/09/2025 4:28 PM [facility] Glucose 90 70 - 100 mg/dL LAB CHEMISTRY METHOD 02/09/2025 4:28 PM [facility] BUN 22 5 - 25 mg/dL LAB CHEMISTRY METHOD 02/09/2025 4:28 PM [facility] Creatinine 0.79 0.70 - 1.30 mg/dL LAB CHEMISTRY METHOD 02/09/2025 4:28 PM [facility] eGFR 90 >=60 mL/min/1. 73m2 LAB CHEMISTRY METHOD 02/09/2025 4:28 PM [facility] Comment:Calculation based on the Chronic Kidney Disease Epidemiology Collaboration (CKD-EPI) equation refit without adjustment for race. BUN/Creatinine Ratio 27.8 LAB CHEMISTRY METHOD 02/09/2025 4:28 PM [facility] Calcium 10.9(H) 8.5 - 10.5 mg/dL LAB CHEMISTRY METHOD 02/09/2025 4:28 PM [facility] AST (SGOT) 19 10 - 42 unit/L LAB CHEMISTRY METHOD 02/09/2025 4:28 PM [facility] ALT (SGPT) 33 10 - 60 unit/L LAB CHEMISTRY METHOD 02/09/2025 4:28 PM [facility] Alkaline Phosphatase 60 42 - 121 unit/L LAB CHEMISTRY METHOD 02/09/2025 4:28 PM EDT [facility] Total Protein 6.8 6.0 - 8.0 g/dL LAB CHEMISTRY METHOD 02/09/2025 4:28 PM EDT [facility] Albumin 4.0 3.2 - 5.0 g/dL LAB CHEMISTRY METHOD 02/09/2025 4:28 PM EDT [facility] Total Bilirubin 0.6 0.0 - 1.4 mg/dL LAB CHEMISTRY METHOD 02/09/2025 4:28 PM EDT [facility] Blood Venous blood specimen / Unknown Venipuncture / Unknown 02/09/2025 10:23 AM EDT 02/09/2025 10:23 AM EDT us Nader Davenport MD LAB BLOOD ORDERABLES F inal Result [facility] [address] [place] [address], [place] [phone] * Lipid panel with reflex to direct LDL (08/09/2024 10:35 AM EST) Cholesterol 141 0 - 200 mg/dL LAB CHEMISTRY METHOD 08/09/2024 5:30 PM EST [facility] Triglycerides 77 0 - 150 mg/dL LAB CHEMISTRY METHOD 08/09/2024 5:30 PM EST [facility] HDL 74 >=40 mg/dL LAB CHEMISTRY METHOD 08/09/2024 5:30 PM EST [facility] LDL Calculated 52 0 - 100 mg/dL LAB CHEMISTRY METHOD 08/09/2024 5:30 PM EST [facility] VLDL Cholesterol Tristen 15.4 mg/dL LAB CHEMISTRY METHOD 08/09/2024 5:30 PM [facility] Non HDL Chol. (LDL+VLDL) 67 <145 mg/dL LAB CHEMISTRY METHOD 08/09/2024 5:30 PM EST [facility] Chol/HDL Ratio 1.9 0.0 - 4.4 LAB CHEMISTRY METHOD 08/09/2024 5:30 PM EST [facility] Blood Venous blood specimen / Unknown Venipuncture / Unknown 08/09/2024 10:35 AM EST 08/09/2024 10:35 AM EST Nader Davenport MD LAB BLOOD ORDERABLES F inal Result [facility] [address] [place] [address], [place] [phone] * Depression Screening (01/30/2024) Pathologist [facility] Depression Screening Abstracted Historical Provider HEALTH MAINTENANCE Final Result * Hepatitis C Screening (07/21/2014) [facility] Hepatitis C Screening Abstracted Historical Provider HEALTH MAINTENANCE Final Result from Last 3 Months or Most Recently Relevant to Health Maintenance Insurance MEDICARE [facility] Advance Directives Documents on File Type Date Recorded Patient Health Information Technician Expl anation Health Care Decision (hx) 06/02/2018 [...] (hx) 05/23/2018 AD STEWART DIRECTIVE Care Teams Digester Hand Relationship Specialty Start Date End Date Nader Davenport MD [address] [place] [address] PCP - General 02/05/23
== END 2025-03-01 10:32 | disposition home or self-care (01) ==
LOC: HO.HSMS 09:46
PROVIDERS: PCP Internal Medicine; Visit Provider Psychiatry & Neurology Neurology
DX: G90.3 Multi-system degeneration of the autonomic nervous system (principal)
CPT/HCPCS: 99214; G2211

== ENCOUNTER → 2025-03-01 09:46 | Outpatient (BNVA) | payer MEDICARE, SELFPAY | PROVIDERS: PCP Internal Medicine; Visit Provider Psychiatry & Neurology Neurology | DX: G90.3 Multi-system degeneration of the autonomic nervous system (principal) | CPT/HCPCS: 99212 ==

== ENCOUNTER 2025-06-08 08:55 | Outpatient (AMB) | payer MEDICARE, SELFPAY ==
--- NOTE | 2025-06-08 08:57 | MHC.OFFVIS ---
Vital Signs 06/08/25 08:58 Height 5 ft 4 in Weight 120 lb BMI 20.6 BP 138/74 Blood Pressure Location Rt brachial Position Sitting Pulse 71 Pulse Source Pulse Oximeter Pulse Oximetry (%) 97 Oxygen Delivery Method Room Air Intake Visit Reasons: F/U Per MD Intake Note: Follow up Parkinson's disease with neurogenic orthostatic hypotension Senior Network Systems Engineer Required: No Accompanied by: Spouse Allergies Penicillins Allergy (Verified 06/08/25 08:57) Rash bactrim Allergy (Uncoded 12/01/24 09:52) Rash Medication List - Last Reconciled 06/08/25 by Veronica Foy MD aspirin 81 mg PO DAILY atorvastatin 20 mg PO BEDTIME econazole nitrate 1% appl topical BID latanoprost 0.005% 1 drp ophthalmic (eye) BEDTIME levothyroxine 50 mcg PO DAILY loratadine (Allergy Relief (loratadine)) 10 mg PO DAILY PRN midodrine 5 mg PO TID [id number]-[id number]-ibm-ipb-tceo-lut-katlin 250 mg (90 mg-160 mg) (Ocuvite Adult 50 Plus) 1 cap PO DAILY nitroglycerin 0.4 mg sublingual Q5M PRN rasagiline 1 mg PO DAILY HPI Comments Details: 79 male patient with autonomic dysfunction and orthostatic hypotension presents with his for follow up of Parkinson's .He had an episode of passing out last week and was admitted at [facility] .Amlodipine was stopped and midodrine was restarted at 5 mg tid He also has stockings and truncal support. He could not tolerate carbidopa/levodopa - had hallucinations and felt very cold.But it helped his movement. He is doing better now with rasagiline . History from- According to his he is slower, drooling more,has trouble dressing and he has tremors in his left hand now.He goes to exercise class 2times a week and walks the rest of the week. Pt reports that he singing for vocal training.He sings every friday when he goes to [employer] He uses fiber with his coffee to manage constipation. Denies difficulty chewing or swallowing. Denies gait changes or falls. Pt has hx of autonomic dysfunction and is on midodrine 2.5 mg BID. He can have occasional light headedness and tries to drink 4-6 glasses of water daily. Pt states that patient's memory is stable but forgetful. He can manage finances. [facility] Medical History Parkinson's disease with neurogenic orthostatic hypotension Surgical History History of prostate surgery Social History Alcohol intake: never Patient Tobacco Use Status: Never used Tobacco Physical Exam Vital Signs: Last Vital Signs Pulse 71 06/08/25 08:58 BP 138/74 06/08/25 08:58 Pulse Ox 97 06/08/25 08:58 Oxygen Delivery Method Room Air 06/08/25 08:58 BMI result Body Mass Index 20.6 Const Orientation/consciousness: patient oriented x3 Neuro Other: no tremors. Decreased facial expression and eye blinking. Hypophonia. better than last visit Mild cogwheel rigidity on left UE Decreased FFM. - mild Decrease arm swing R>L. Mildly stooped, good steps. General: patient oriented x3 Cranial nerves: Yes Normal facial strength present, Yes Midline tongue present, Yes Ability to bilaterally rotate head present and Yes Ability to bilaterally elevate shoulders present Cognition (Neuro): normal cognition Motor exam (neuro): 5/5 motor strength present throughout and Pronator motor function not present Coordination: [id number] test normal Assessment & Plan Assessment & Plan (1) Parkinson's disease with neurogenic orthostatic hypotension: Code(s): G90.3 - Multi-system degeneration of the autonomic nervous system Category: Medical Plan Continue rasagiline 1mg qd Midodrine 5 mg tid Encouraged patient to continue to do daily exercise. Advised patient to do voice and speech exercise including reading books loudly and singing. Encourage patient well balanced diet and enough PO fluid to prevent orthostatic hypotension and constipation. Suggested miralax and smooth move tea for constipation . Coding Level of Care Code Est Pt Level 4 (19254) Complex EM visit Add On G2211 Diagnoses Parkinson's disease with neurogenic orthostatic hypotension G90.3
[2025-06-08 08:58] VITALS: BP 138/74; PULSE 71; O2SAT 97; BMI 20.6
--- OUTSIDE RECORDS SUMMARY | 2025-06-08 09:53 | XMS_ITS | Clinical Summary ---
Author Organization [facility] [address] [facility] Address [address] [place] [address] Phone Care Team Providers Care Napper Fixer Name Role Phone Nadre Davenport MD Primary Care Provider Allergies Active Allergy Reactions Criticality Noted Date Comments Diphenhydramine Hcl 07/15/2005 Penicillins 07/15/2005 Sulfamethoxazole-Trimethoprim 2004 Medications aspirin (ASPIR-81 ORAL) Take by mouth. Active mv-mn/om3/dha/e pa/fish/lut/katlin (OCUVITE ADULT 50 PLUS ORAL) Take by mouth. Active levothyroxine (SYNTHROID, LEVOTHROID) 50 mcg tablet Take 1 tablet (50 mcg total) by mouth 1 (one) time each day. 90 tablet 3 10/05/2024 Active atorvastatin (LIPITOR) 20 mg tablet TAKE 1 TABLET AT BEDTIME 90 tablet 1 01/04/2025 Active rasagiline (AZILECT) 1 mg tablet Take 1 tablet (1 mg total) by mouth 1 (one) time each day. 01/26/2025 Active nitroglycerin (NITROSTAT) 0.[address] 1 tablet (0.4 mg total) under the tongue every 5 (five) minutes if needed for chest pain. 90 tablet 02/09/2025 Active amLODIPine (NORVASC) 2.5 mg tablet Take 1 tablet (2.5 mg total) by mouth 1 (one) time each day. 90 tablet 1 03/03/2025 Active Active Problems Problem Noted Date Diagnosed Date Atypical chest pain 02/09/2025 Dizziness 02/09/2025 Hypertensive disorder 02/09/2025 Orthostatic hypotension 02/09/2025 Hypotension 11/29/2024 Colon cancer screening declined 08/09/2024 Parkinson's disease ([facility] V24, [facility] V28) 0 01/30/2024 Atopic dermatitis 04/10/2022 Furuncle [...] blood pressure 9 Malignant neoplasm of prostate ([facility] V24, [facility] V28) 06/30/2019 Carcinoma in situ of skin [...] update Neoplasm of uncertain behavior of skin 6 Overview (06/29/2024): Dysplastic nevus right ear (moderate atypia) Coronary atherosclerosis of [place] coronary vess el 12/01/2005 Malignant neoplasm of skin 12/01/2005 Overview (06/29/2024): BCC 11/17 nose (nodular type) 08/13 left buddhist 92' right shoulder IMO update Hypothyroidism 12/01/2005 Essential hypertension, benign 07/15/2005 Mixed hyperlipidemia 07/15/2005 Encounters Date Type Department Care Team Description 06/02/2025 Telephone Adult Medicine [address] [phone] Nader Davenport MD 05/31/2025 Telephone Adult Medicine [address] [phone] Allie Avendano MA from Last 3 Months Immunizations Immunization Administration Dates Next Due Influenza Quadravalent, MDCK [...] exam, Dr. Zapata OTHER SURGICAL HISTORY PROCEDURE: [place] LAPS SURG [id number] RPBIC RAD W/NRV SPARING ROBOT; COMMENT: For prostate cancerDr. Thompson in 2010 Medical History Medical History Date Comments Unspecified hypothyroidism DX:Un specified hypothyroidism Essential hypertension, benign D X:Essential hypertension, benign Mixed hyperlipidemia DX:Mixed hy perlipidemia Coronary atherosclerosis of unspecified type of vessel, [place] or graft 12/01/2005 DX:Coronary atherosclerosis of unspecified type of vessel, [place] or graft Unspecified hypothyroidism 12/01/2005 DX:Un specified [...] your loved ones. For example, child care counselor or elderly care for an older adult? [...] Date Recorded What is your living situation? Unrecognized valu e 02/09/2025 Sex and Gender Information Value Date Recorded Sex Assigned at Not on file Legal Sex Male 11:44 PM EST Gender Identity Male 08/02/2024 1:05 PM EST Sexual Orientation Straight 08/02/2024 1: 05 PM EST Obstetrics History Last Filed Vital Signs Vital Sign Reading Time Taken Comments Blood Pressure 122/68 03/03/2025 12:[address] anding Pulse 68 03/03/2025 12:31 PM EDT Temperature 36.3 C (97.4 F) 03/03/2025 12:31 PM EDT Respiratory Rate 16 03/03/2025 12:31 PM EDT Oxygen Saturation 98% 03/03/2025 12:31 PM EDT Inhaled Oxygen Concentration - - Weight 54 kg (119 lb) 03/03/2025 12:31 PM EDT Height 162.6 cm (5' 4 ) 03/03/2025 12:31 PM EDT Body Mass Index 20.43 03/03/2025 12:31 PM EDT Plan of Treatment Upcoming Encounters Date Type Department Care Team (Late st Contact Info) Description 06/22/2025 2:00 PM EST Office Visit Adult Medicine [address] [phone] Nader Davenport MD [address] [place] [address] 09/05/2025 11:00 AM EST Office Visit Adult Medicine [address] [phone] Nader Davenport MD [address] [place] [address] Health Maintenance Due Date Last Done Comments RSV Immunization Adult Patients (1 - 1-dose 75+ series) 2020 DTaP,Tdap,and Td Vaccines (3 - Td or Tdap) 04/07/2023 04/07/2013, 05/30/2003 Medicare Annual Wellness Visit 01/29/2025 01/30/2024 COVID-19 Vaccine (7 - Moderna risk season) 2025 06/12/2024, 05/31/2023, 05/06/2022, Additional history exists Influenza Vaccine (#1) 2025 , 05/31/2023, 05/20/2022, [...] 10:23 AM EDT Coronary artery disease involving [place] coronary artery of [place] heart without angina pectoris LIPID PANEL WITH REFLEX TO DIRECT LDL Routine 08/09/2024 10:35 AM EST Mixed hyperlipidemia DEPRESSION SCREENING Routine 01/30/2024 HEPATITIS C SCREENING Routine 07/21/2014 from Last 3 Months or Most Recently Relevant to Health Maintenance Results * (ABNORMAL) Comprehensive metabolic panel (02/09/2025 10:23 AM EDT) Sodium 142 133 - 145 mmol/L LAB CHEMISTRY METHOD 02/09/2025 4:28 PM [facility] Potassium 4.3 3.5 - 5.5 mmol/L LAB CHEMISTRY METHOD 02/09/2025 4:28 PM [facility] Chloride 106 96 - 110 mmol/L LAB CHEMISTRY METHOD 02/09/2025 4:28 PM [facility] CO2 32 21 - 32 mmol/L LAB CHEMISTRY METHOD 02/09/2025 4:28 PM [facility] Anion Gap 4 3 - 11 LAB CHEMISTRY METHOD 02/09/2025 4:28 PM [facility] Glucose 90 70 - 100 mg/dL LAB CHEMISTRY METHOD 02/09/2025 4:28 PM [facility] BUN 22 5 - 25 mg/dL LAB CHEMISTRY METHOD 02/09/2025 4:28 PM [facility] Creatinine 0.79 0.70 - 1.30 mg/dL LAB CHEMISTRY METHOD 02/09/2025 4:28 PM [facility] eGFR 90 >=60 mL/min/1. 73m2 LAB CHEMISTRY METHOD 02/09/2025 4:28 PM [facility] Comment:Calculation based on the Chronic Kidney Disease Epidemiology Collaboration (CKD-EPI) equation refit without adjustment for race. BUN/Creatinine Ratio 27.8 LAB CHEMISTRY METHOD 02/09/2025 4:28 PM [facility] Calcium 10.9(H) 8.5 - 10.5 mg/dL LAB CHEMISTRY METHOD 02/09/2025 4:28 PM [facility] AST (SGOT) 19 10 - 42 unit/L LAB CHEMISTRY METHOD 02/09/2025 4:28 PM [facility] ALT (SGPT) 33 10 - 60 unit/L LAB CHEMISTRY METHOD 02/09/2025 4:28 PM [facility] Alkaline Phosphatase 60 42 - 121 unit/L LAB CHEMISTRY METHOD 02/09/2025 4:28 PM [facility] Total Protein 6.8 6.0 - 8.0 g/dL LAB CHEMISTRY METHOD 02/09/2025 4:28 PM [facility] Albumin 4.0 3.2 - 5.0 g/dL LAB CHEMISTRY METHOD 02/09/2025 4:28 PM [facility] Total Bilirubin 0.6 0.0 - 1.4 mg/dL LAB CHEMISTRY METHOD 02/09/2025 4:28 PM [facility] Blood Venous blood specimen / Unknown Venipuncture / Unknown 02/09/2025 10:23 AM EDT 02/09/2025 10:23 AM EDT us Nader Davenport MD LAB BLOOD ORDERABLES F inal Result [facility] [address] [place] [address], * Lipid panel with reflex to direct LDL (08/09/2024 10:35 AM EST) Cholesterol 141 0 - 200 mg/dL LAB CHEMISTRY METHOD 08/09/2024 5:30 PM EST [facility] Triglycerides 77 0 - 150 mg/dL LAB CHEMISTRY METHOD 08/09/2024 5:30 PM EST [facility] HDL 74 >=40 mg/dL LAB CHEMISTRY METHOD 08/09/2024 5:30 PM [facility] LDL Calculated 52 0 - 100 mg/dL LAB CHEMISTRY METHOD 08/09/2024 5:30 PM EST [facility] VLDL Cholesterol Tristen 15.4 mg/dL LAB CHEMISTRY METHOD 08/09/2024 5:30 PM EST [facility] Non HDL Chol. (LDL+VLDL) 67 <145 mg/dL LAB CHEMISTRY METHOD 08/09/2024 5:30 PM EST [facility] Chol/HDL Ratio 1.9 0.0 - 4.4 LAB CHEMISTRY METHOD 08/09/2024 5:30 PM [facility] Blood Venous blood specimen / Unknown Venipuncture / Unknown 08/09/2024 10:35 AM EST 08/09/2024 10:35 AM EST Nader Davenport MD LAB BLOOD ORDERABLES F inal Result [facility] [address] [place] [address], * Depression Screening (01/30/2024) Pathologist [facility] Depression Screening Abstracted Historical Provider HEALTH MAINTENANCE Final Result * Hepatitis C Screening (07/21/2014) Pathologist [facility] Hepatitis C Screening Abstracted Historical Provider HEALTH MAINTENANCE Final Result from Last 3 Months or Most Recently Relevant to Health Maintenance Insurance MEDICARE [facility] Advance Directives Documents on File Type Date Recorded Patient Administrative Asst Expl anation Health Care Decision (hx) 06/02/2018 [...] (hx) 05/23/2018 AD STEWART DIRECTIVE Care Teams Napper Fixer Relationship Specialty Start Date End Date Nader Davenport MD [address] [place] [address] PCP - General 02/05/23
--- OUTSIDE RECORDS SUMMARY | 2025-06-08 09:53 | XMS_ITS ---
Author Name [facility] Organization Unknown Care Team Organization Name Specialty Phone Email Start Date End Da te [facility] ACO 03/30/2025 [facility] MONIQUE TALBOT Primary Care 01/17/2023 [facility] Termed, PROVIDER Primary Care 06/18/202203/11
--- OUTSIDE RECORDS SUMMARY | 2025-06-08 09:53 | XMS_ITS | Encounter Summary ---
Author Organization [facility] Address [address] [place] [address] Care Team Providers Care Gardening Supervisor Name Role Phone Nader Davenport MD Primary Care Provider Reason for Visit * Reason Onset Date Comments discharged 06/02/2025 vna 06/02/2025 Encounter Details Date Type Department Care Team (Late st Contact Info) Description 06/02/2025 Telephone Adult Medicine [facility] [address] [place], [place] [phone] Nader Davenport MD [address] [place], [place] Social History Tobacco Use Types Packs/Day Years [...] do you feel lonely or isolated from ose around you? Never 02/09/2025 Food Risk [...] your loved ones. For example, child care coordinator or elderly care for an older adult? [...] Orientation Straight 08/02/2024 1: 05 PM EST documented as of this encounter Progress Notes * Sharon Nuñez - 06/02/2025 10:20 AM EDT [facility] CALL Which [facility] office is calling? [address] [facility] [address] Full name of caller: Dee Alvarenga [facility] Is the caller at the patients home?: no Reason for call: patient being discharge on 06/02/2025, patient was admitted due to a fall in his home back on 05/28/2025. Does caller need an urgent call back? no Was CONTACT Telephone # obtained above?: yes Fax #: [phone] documented in this encounter Plan of Treatment Upcoming Encounters Date Type Department Care Team (Late st Contact Info) Description 06/22/2025 2:00 PM EST Office Visit Adult Medicine [address] [phone] Nader Davenport MD [address] [place] [address] 09/05/2025 11:00 AM EST Office Visit Adult [address] [phone] Nader Davenport MD [address] [place] [address] documented as of this encounter Visit Diagnoses Not on filedocumented in this encounter Additional Health Concerns Assessment Noted Time PHQ-9 Depression Total Score: 0 02/25/20 25 11:02 AM EDT A fall risk assessment has been complete d for the patient 08/09/2024 9:44 AM EST documented as of this encounter Care Teams Gardening Supervisor Relationship Specialty Start Date End Date Nader Davenport MD [address] [place] [address] PCP - General 02/05/23 documented as of this encounter
--- OUTSIDE RECORDS SUMMARY | 2025-06-08 09:53 | XMS_ITS ---
Author Organization [facility] [address] [place] [address] Address [address] [place] [address] Phone Care Team Providers Care Chauffeur [employer]ine Name Role Phone Nader Davenport MD Primary Care Provider Transitional Care Management Status:Ongoing (Active) Start date:06/06/2025 Enrollment date:06/06/2025 Enrollment reason:Identified using hospital discharge data Case Team Name Relationship Phone Arlene Harrington LPN(Responsible Staff) Spinning Machine Operator Continued Care and Services Coordination
--- OUTSIDE RECORDS SUMMARY | 2025-08-04 20:00 | XMS_ITS | Clinical Summary ---
Author Organization Unknown Care Team Providers Care New Account Interviewer Name Role Phone REBECA KAUR, CALIN PERALTA Unavailable Unava siva PUENTE RN, SAVANNA Unavailable Unavailable NAY VOUCHER CLERK, TRISTA Unavailable Unavail able AMANDA PT, GILDA Unavailable Unavailable IGNACIO FRUIT OR NUT PICKER, DEB Unavailable Unavailable LENGIEZA OT, SOL Unavailable Unavailable Payers Payer Name Policy Type Policy Number Effective Date Expira tion Date MEDICARE.NGS.PDGM [id number] Problems Condition Name Condition Details Condition Category Status Onset Date Resolution Date Last Treatment Date Treating Clinician Comments ORTHOSTATIC HYPOTENSION Active 2024-08 00:00: 00 Allergies, Adverse Reactions, Alerts Allergy Name Allergy Type Status Severity Reaction(s) Onset Date Inactive Date Treating Clinician Comments BACTRIM Propensity to adverse reactions Active 2024-08 14:58: 22 BENYLIN DM Propensity to adverse reactions Active 2024-08 14:57: 28 PENICILLIN PRODUCTS Propensity to adverse reactions Active 2024-08 14:56: 57 Vital Signs Vital Name Observation Time Observation Value Commen ts Temperature 2025-06-07 15:15:00.000 98.1 [degF] BMI (%) 2025-06-08 06:43:53.000 20 kg/m2 Height 2025-06-08 06:42:22.000 63 [in_us] Pulse 2025-06-07 15:15:00.000 72 /min O2 Saturation (%) 2025-06-07 15:15:00.000 98 % Respirations 2025-06-07 15:15:00.000 18 /min Weight (lbs) 2025-06-08 06:43:53.000 117 [lb_av] Systolic Blood Pressure 2025-06-07 15:15:00.000 118 mm [Hg] Diastolic Blood Pressure 2025-06-07 15:15:00.000 60 mm [Hg] Plan of Treatment Planned Activity Planned Date Details Comments Future Scheduled Test RN TO OBSE RVE, ASSESS, EVALUATE, AND DEVELOP AN INDIVIDUALIZED PLAN OF CARE. AGENCY MAY ACCEPT ORDERS FROM CONSULTING PHYSICIANS. RN TO OBSERVE AND ASSESS, VOUCHER CLERK/ICE SCULPTOR TO OBSERVE FOR RISK FOR FALLS AND INSTRUCT IN FALL PREVENTION, HOME SAFETY, MEDICATION MANAGEMENT, INFECTION PREVENTION, AND NUTRITION MANAGEMENT. RN/VOUCHER CLERK/ICE SCULPTOR NURSE MAY PERFORM O2 SATURATION LEVEL ON ADMISSION AND FOR RN TO ASSESS/VOUCHER CLERK TO OBSERVE PATIENT, WITH NOTIFICATION TO THE PHYSICIAN IF SATURATION IS 90% IN THE ABSENCE OF MORE SPECIFIC PARAMETERS FROM THE PHYSICIAN. AGENCY MAY PERFORM A RESUMPTION OF CARE VISIT FOLLOWING ANY HOSPITAL ADMISSION. RN/VOUCHER CLERK/ICE SCULPTOR TO MONITOR CO-MORBID CONDITIONS LISTED ON THE PLAN OF CARE AND ANY NEW CONDITIONS THAT PRESENT THEMSELVES DURING THIS EPISODE TO IDENTIFY CHANGES AND INTERVENE TO MINIMIZE COMPLICATIONS. [code = RN TO OBSERVE, ASSESS, EVALUATE, AND DEVELOP AN INDIVIDUALIZED PLAN OF CARE. AGENCY MAY ACCEPT ORDERS FROM CONSULTING PHYSICIANS. RN TO OBSERVE AND ASSESS, VOUCHER CLERK/ICE SCULPTOR TO OBSERVE FOR RISK FOR FALLS AND INSTRUCT IN FALL PREVENTION, HOME SAFETY, MEDICATION MANAGEMENT, INFECTION PREVENTION, AND NUTRITION MANAGEMENT. RN/VOUCHER CLERK/ICE SCULPTOR NURSE MAY PERFORM O2 SATURATION LEVEL ON ADMISSION AND FOR RN TO ASSESS/VOUCHER CLERK TO OBSERVE PATIENT, WITH NOTIFICATION TO THE PHYSICIAN IF SATURATION IS 90% IN THE ABSENCE OF MORE SPECIFIC PARAMETERS FROM THE PHYSICIAN. AGENCY MAY PERFORM A RESUMPTION OF CARE VISIT FOLLOWING ANY HOSPITAL ADMISSION. RN/VOUCHER CLERK/ICE SCULPTOR TO MONITOR CO-MORBID CONDITIONS LISTED ON THE PLAN OF CARE AND ANY NEW CONDITIONS THAT PRESENT THEMSELVES DURING THIS EPISODE TO IDENTIFY CHANGES AND INTERVENE TO MINIMIZE COMPLICATIONS.] Future Scheduled Test MEDICATION MANAGEMENT; RN/VOUCHER CLERK/ICE SCULPTOR TO REVIEW MEDICATIONS FOR INTERACTIONS, EFFECTIVENESS OF DRUG THERAPY, AND SIGNS/SYMPTOMS OF ADVERSE REACTIONS. MAY INSTRUCT AND REINFORCE MEDICATION TEACHING RELATED TO THE USE OF MEDICATIONS, DOSAGE, FREQUENCY, PURPOSE, SIDE EFFECTS, AND TO REPORT COMPLICATIONS. [code = MEDICATION MANAGEMENT; RN/VOUCHER CLERK/ICE SCULPTOR TO REVIEW MEDICATIONS FOR INTERACTIONS, EFFECTIVENESS OF DRUG THERAPY, AND SIGNS/SYMPTOMS OF ADVERSE REACTIONS. MAY INSTRUCT AND REINFORCE MEDICATION TEACHING RELATED TO THE USE OF MEDICATIONS, DOSAGE, FREQUENCY, PURPOSE, SIDE EFFECTS, AND TO REPORT COMPLICATIONS.] Future Scheduled Test RISK FOR H OSPITALIZATION; RN TO ASSESS/TEACH, ICE SCULPTOR/VOUCHER CLERK TO OBSERVE/TEACH PATIENT/CAREGIVER ON RISK FOR HOSPITALIZATION/EMERGENCY ROOM VISITS, TEACH SIGNS AND SYMPTOMS THAT PUT PATIENT AT RISK, WHEN TO NOTIFY NURSE/PHYSICIAN OF COMPLICATIONS/DECLINE, AND WHEN TO CALL 911. [code = RISK FOR HOSPITALIZATION; RN TO ASSESS/TEACH, ICE SCULPTOR/VOUCHER CLERK TO OBSERVE/TEACH PATIENT/CAREGIVER ON RISK FOR HOSPITALIZATION/EMERGENCY ROOM VISITS, TEACH SIGNS AND SYMPTOMS THAT PUT PATIENT AT RISK, WHEN TO NOTIFY NURSE/PHYSICIAN OF COMPLICATIONS/DECLINE, AND WHEN TO CALL 911.] Future Scheduled Test SKIN INTEG RITY RN TO ASSESS AND TEACH, VOUCHER CLERK/ICE SCULPTOR TO OBSERVE AND TEACH INTEGUMENTARY STATUS TO IDENTIFY CHANGES AND INTERVENE TO MINIMIZE COMPLICATIONS. PROVIDE SKILLED TEACHING OF GENERAL WOUND AND SKIN CARE AND PREVENTION RELATED TO POTENTIAL FOR ALTERED SKIN INTEGRITY. [code = SKIN INTEGRITY RN TO ASSESS AND TEACH, VOUCHER CLERK/ICE SCULPTOR TO OBSERVE AND TEACH INTEGUMENTARY STATUS TO IDENTIFY CHANGES AND INTERVENE TO MINIMIZE COMPLICATIONS. PROVIDE SKILLED TEACHING OF GENERAL WOUND AND SKIN CARE AND PREVENTION RELATED TO POTENTIAL FOR ALTERED SKIN INTEGRITY.] Future Scheduled Test FALL REDUC TION MANAGEMENT; RN TO ASSESS AND OBSERVE, VOUCHER CLERK/ICE SCULPTOR TO OBSERVE FALL RISK FACTORS AND EDUCATE PATIENT/CAREGIVER ON STRATEGIES TO MINIMIZE THE RISK OF FALLING. [code = FALL REDUCTION MANAGEMENT; RN TO ASSESS AND OBSERVE, VOUCHER CLERK/ICE SCULPTOR TO OBSERVE FALL RISK FACTORS AND EDUCATE PATIENT/CAREGIVER ON STRATEGIES TO MINIMIZE THE RISK OF FALLING.] Future Scheduled Test PAIN MANAG EMENT; RN TO ASSESS AND TEACH, ICE SCULPTOR/VOUCHER CLERK TO OBSERVE AND TEACH AND PROVIDE EDUCATION ON PAIN MANAGEMENT TECHNIQUES. [code = PAIN MANAGEMENT; RN TO ASSESS AND TEACH, ICE SCULPTOR/VOUCHER CLERK TO OBSERVE AND TEACH AND PROVIDE EDUCATION ON PAIN MANAGEMENT TECHNIQUES.] Future Scheduled Test CARDIOVASC ULAR SYSTEM; RN TO ASSESS/TEACH, VOUCHER CLERK/ICE SCULPTOR TO OBSERVE/TEACH RELATED TO ALTERED CARDIOVASCULAR STATUS TO MINIMIZE COMPLICATIONS AND REDUCE HOSPITALIZATION. [code = CARDIOVASCULAR SYSTEM; RN TO ASSESS/TEACH, VOUCHER CLERK/ICE SCULPTOR TO OBSERVE/TEACH RELATED TO ALTERED CARDIOVASCULAR STATUS TO MINIMIZE COMPLICATIONS AND REDUCE HOSPITALIZATION.] Future Scheduled Test HYPOTENSIO N MANAGEMENT; RN TO ASSESS AND TEACH/ VOUCHER CLERK /ICE SCULPTOR TO OBSERVE AND TEACH WARNING SIGNS AND SYMPTOMS TO AVOID HOSPITALIZATION. [code = HYPOTENSION MANAGEMENT; RN TO ASSESS AND TEACH/ VOUCHER CLERK /ICE SCULPTOR TO OBSERVE AND TEACH WARNING SIGNS AND SYMPTOMS TO AVOID HOSPITALIZATION.] Future Scheduled Test PHYSICAL T HERAPIST TO EVALUATE FOR HEP, STRENGTHENING [code = PHYSICAL THERAPIST TO EVALUATE FOR HEP, STRENGTHENING] Future Scheduled Test OCCUPATION AL THERAPIST TO EVALUATE FOR BATHING, DRESSING AND GROOMING STRATEGIES [code = OCCUPATIONAL THERAPIST TO EVALUATE FOR BATHING, DRESSING AND GROOMING STRATEGIES] Goal Patient Goal - RETURN TO [facility] Goal Provider Goal - A PLAN OF CARE WILL BE ESTABLISHED THAT MEETS THE PATIENT S NEEDS. PATIENT WILL DEMONSTRATE OXYGEN SATURATION WITHIN NORMAL LIMITS OR PATIENT S OPTIMAL LEVEL ESTABLISHED BY THE PHYSICIAN THROUGHOUT CARE. CHANGES TO CO-MORBID CONDITIONS AND ANY NEW CONDITIONS WILL BE IDENTIFIED AND REPORTED TO THE PHYSICIAN. Goal Provider Goal - PATIENT/CAREGIVER TO VERBALIZE, AND CONSISTENTLY DEMONSTRATE EFFECTIVE, SAFE MANAGEMENT OF MEDICATION INCLUDING KNOWLEDGE OF EFFECTIVENESS, POTENTIAL SIDE EFFECTS AND DRUG REACTIONS AND WHEN TO CONTACT THE APPROPRIATE CARE PROVIDER. PATIENT/CAREGIVER WILL BE ABLE TO VERBALIZE UNDERSTANDING OF MEDICATION REGIMEN AND ACCURATELY TAKE MEDICATIONS PRESCRIBED WITHOUT ADVERSE EFFECTS BY 08/05/25. Goal Provider Goal - PATIENT/CAREGIVER WILL VERBALIZE UNDERSTANDING OF SIGNS AND SYMPTOMS THAT PUT THE PATIENT AT RISK FOR HOSPITALIZATION /EMERGENCY ROOM VISITS, WHEN TO NOTIFY NURSE/PHYSICIAN OF COMPLICATIONS/DECLINE AND WHEN TO CALL 911. Goal Provider Goal - CHANGES IN SKIN INTEGRITY STATUS WILL BE IDENTIFIED AND REPORTED TO THE PHYSICIAN FOR PROMPT INTERVENTION. PATIENT / CAREGIVER WILL VERBALIZE/DEMONSTRATE ADEQUATE KNOWLEDGE OF INTEGUMENTARY STATUS AND APPROPRIATE MEASURES TO PROMOTE SKIN INTEGRITY AND PREVENT INJURY BY 08/05/25. Goal Provider Goal - PATIENT/CAREGIVER WILL VERBALIZE/DEMONSTRATE UNDERSTANDING OF FALL RISK FACTORS AND IMPLEMENT STRATEGIES TO MINIMIZE FALL RISK. PATIENT/CAREGIVER WILL VERBALIZE/DEMONSTRATE AN ABILITY TO ADHERE TO FALL REDUCTION SELF-MANAGEMENT AND LIFE-STYLE CHANGES BY 08/05/25. Goal Provider Goal - PATIENT / CAREGIVER WILL VERBALIZE / DEMONSTRATE UNDERSTANDING OF PAIN CONTROL MEASURES BY 08/05/25. Goal Provider Goal - PATIENT / CAREGIVER WILL VERBALIZE/DEMONSTRATE UNDERSTANDING OF MEASURES TO MANAGE ALTERED CARDIOVASCULAR STATUS BY 08/05/25. Goal Provider Goal - PATIENT/CAREGIVER WILL VERBALIZE/DEMONSTRATE ABILITY TO ADHERE TO SELF-MANAGEMENT OF HYPOTENSION TO MINIMIZE COMPLICATIONS AND AVOID HOSPITALIZATION BY THE END OF EPISODE. 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 PATIENT HAD AN ORTHOSTATIC EPISODE AND FELL AT HOME. PATIENT'S WITNESSED FALL. THEY WERE IN THE KITCHEN AND SHE WAS ABOUT TO WASH OFF A SCALP TREATMENT FROM PATIENT'S HEAD AT THE SINK. HE CRUMBLED TO GROUND. HE DID NOT HIT HIS HEAD AND WAS ALERT WHEN LOOKED DOWN. PATIENT REFUSED EMS TO BE CALLED AND WAS TRANSPORTED BY FAMILY TO ED. PER PATIENT'S , HE WAS OVER MEDICATED. AMLODIPINE DISCONTINUED AND MIDODRINE WAS ADDED WITH PARAMETERS FOR USE. BOTH PATIENT AND ARE AWARE OF PARAMETERS AND THEY TAKE, RECORD AND MONITOR VITALS DAILY. </paragraph><paragraph>PATIENT DOES NOT USE A DEVICE FOR MOBILITY. HIS SUPERVISES HIM AND PROVIDES SUPPORT. THEY ARE VERY ACTIVE AND ATTEND THE [facility]IOR [facility] TWICE A WEEK FOR AN EXERCISE GROUP AND ACTIVITIES. PATIENT'S GOAL IS TO RETURN TO THESE ACTIVITIES. </paragraph><paragraph>PATIENT'S SPEECH IS SOFT AND LOW. HE DECLINED SPEECH THERAPY. I HAVE ALL THE EQUIPMENT AND EXERCISES BUT WAS NOT ABLE TO DO THEM WHILE IN THE HOSPITAL. PATIENT'S PAST MEDICAL HISTORY INCLUDES: ATYPICAL CHEST PAIN, HLD, CORONARY ARTIOSCLEROSIS, DIZZINESS, ORTHOSTATIC HYPOTENSION, PARKINSONS.</paragraph><paragraph>PATIENT EDUCATED [employer] AND ITS USE. PATIENT AND VERBALIZED UNDERSTANDING. PATIENT IS HOMEBOUND DUE TO IMPAIRED MOBILITY AND ENDURANCE. HE REQUIRES AN ASSIST OF ANOTHER TO ENSURE SAFETY. DR. JOSE CALLED, SPOKE TO NIKKY, SOC, POC,DISCIPLINES AND FREQUENCIES DISCUSSED. DOCTOR IS IN AGREEMENT WITH ALL.</paragraph> Encounters Start Date/Time End Date/Time Encounter Type Admission Type Attending Clinicians Care Facility Care Department Encounter ID Discharge Date Discharge Status Discharge Condition Discharge Reason Percent Goals Met 2025-06-07 00:00:00 2025-08-05 00:00:00 Outpatient NEW ADMISSION SAVANNA PUENTE [facility] [id number] 100.00
== END 2025-06-08 09:46 | disposition home or self-care (01) ==
LOC: HO.HSMS 08:55
PROVIDERS: PCP Internal Medicine; Visit Provider Psychiatry & Neurology Neurology
DX: G90.3 Multi-system degeneration of the autonomic nervous system (principal)
CPT/HCPCS: 99214; G2211

== ENCOUNTER → 2025-06-08 08:55 | Outpatient (BNVA) | payer MEDICARE, SELFPAY | PROVIDERS: PCP Internal Medicine; Visit Provider Psychiatry & Neurology Neurology | DX: G90.3 Multi-system degeneration of the autonomic nervous system (principal) | CPT/HCPCS: 99212 ==